=== PATIENT | female | born 1995 | race African-American/Black ===

== ENCOUNTER 2020-11-15 01:12 | Emergency (ER) | payer MEDICAID, OTHER ==
[2020-11-15 02:37] LABS: #Eosinphils 0.1 10x3/uL (0.0-0.5); #Monocytes 0.5 10x3/uL (0.0-1.1); #Neutrophils 4.1 10x3/uL (1.5-8.4); %Basophils 0.6 % (0.0-2.0); %Eosinophils 1.3 % (0.0-6.0); %Monocytes 7.2 % (0.0-10.0); %Neutrophils 60.6 % (40.0-75.0); Hemoglobin 11.2 g/dL (12.0-15.5); Mean Corpuscular HGB CONC 32.3 g/dL (32.0-36.0); Mean Corpuscular Hemoglobin 26.5 pg (27.0-33.0); Mean Platelet Volume 9.7 fl (7.4-10.4); Platelet Count 292 10x3/uL (150-450); RBC Distribution Width 13.8 % (11.5-14.5); Red Blood Cell (RBC) Count 4.23 10x6/uL (3.90-5.03); White Blood Cell (WBC) Count 6.7 10x3/uL (3.5-10.5)
[2020-11-15] MEDS ORDERED: Acetaminophen 500 MG TAB ONE (03:19)
== END 2020-11-15 04:13 | disposition home or self-care (01) ==
LOC: CSHERS 01:12
DX: O20.9 Hemorrhage in early pregnancy, unspecified (principal); F17.290 Nicotine dependence, other tobacco product, uncomplicated; Z3A.08 8 weeks gestation of pregnancy
CPT/HCPCS: 36415; 84702; 85025

== ENCOUNTER 2021-10-16 22:15 | Emergency (ER) | payer OTHER ==
[2021-10-17] MEDS ORDERED: Ketorolac Tromethamine 30 MG/ML VIAL ONE (00:36)
== END 2021-10-17 01:05 | disposition home or self-care (01) ==
LOC: CSHERS 22:15
DX: H66.91 Otitis media, unspecified, right ear (principal)
CPT/HCPCS: 96372; 99282; J1885